=== PATIENT | female | born 1950 | race Caucasian/White ===

== ENCOUNTER 2018-08-14 21:23 | Emergency (ER) | payer OTHER ==
[~2018-08-14] VITALS: Ht 170.2 cm; Wt 59.0 kg
[2018-08-14 21:39] VITALS: BP 121/66
--- NOTE | 2018-08-14 23:07 | Diagnostic Imaging Report ---
WRIST COMPLETE RIGHT HISTORY: Wrist pain status post trauma COMPARISON: None FINDINGS: Bones: No displaced fracture. Mild diffuse demineralization Osseous alignment is within normal limits. Joints: The joint spaces are well-maintained. Soft tissues: The soft tissues appear unremarkable. IMPRESSION: No acute radiographic abnormality. Signed by: Dr. Jonny Rider M.D. on 08/14/2018 11:04 PM
--- NOTE | 2018-08-14 23:08 | Diagnostic Imaging Report ---
RIBS UNILAT W/CXR/LEFT HISTORY: Left-sided rib pain COMPARISON: None FINDINGS: Bones: No displaced fracture. Osseous alignment is within normal limits. Joints: The joint spaces are well-maintained. Soft tissues: The soft tissues appear unremarkable. IMPRESSION: No acute radiographic abnormality. Signed by: Dr. Jonny Rider M.D. on 08/14/2018 11:05 PM
--- OUTSIDE RECORDS SUMMARY | 2018-08-25 11:13 | XMS REPORT | Summary of Care ---
Author Author Vicki Smith Unknown Address [facility] Phone Unavailable Care Team Providers Care Teletype Telegrapher Name Role Phone KATHIE Dudley, ANNETTE Unavailable Unavailable LISSY DESIR [place], VINICIO IYER Unavailable Unavailable VINICIO YUAN M.D. Unavailable Unavailable Unavailable Functional Status Name Dates Details Functional status health issues are not documented Status: Name Dates Details Cognitive status health issues are not documented Status: Problems Name Dates Details Jaw pain (784.92, R68.84) Status: Active Need for hepatitis C screening test (V73.89, Z11.59) Status: Active High risk for colon cancer (V49.89, Z91.89) Status: Active Hordeolum externum of right lower eyelid (373.11, H00.012) Status: Active Allergic rhinitis due to pollen, unspecified rhinitis seasonality Status: Active Sore throat (462, J02.9) Status: Active Fever and chills (780.60, R50.9) Status: Active Right hip pain (719.45, M25.551) Status: Active Fall at home (E888.9, W19.XXXA) Status: Active Post-menopausal (V49.81, Z78.0) Status: Active Osteoporosis screening (V82.81, Z13.820) Status: Active Hyperglycemia (790.29, R73.9) Status: Active Risk for falls (V15.88, Z91.81) Status: Active Need for influenza vaccination (V04.81, Z23) Status: Active Vaginitis due to Nu (112.1, B37.3) Status: Active Dyslipidemia (272.4, E78.5) Status: Active Mammogram declined (V64.2, Z53.20) Status: Active Body mass index (BMI) 21 to less than 23 (V85.1) Status: Active Localized osteoporosis without current pathological fracture (733.09, M81.6) Status: Active Vitamin D deficiency (268.9, E55.9) Status: Active Vision problem (V41.0, H54.7) Status: Active Need for pneumococcal vaccination (V03.82, Z23) Status: Active Depression screen (V79.0, Z13.89) Status: Active Advance directive discussed with patient (V65.49, Z71.89) Status: Active Encounter for mini-mental status examination Status: Active Back pain, lumbosacral (724.2, M54.5) Status: Active Chronic right shoulder pain (719.41, M25.511) Status: Active Screen for colon cancer (V76.51, Z12.11) Status: Active Cellulitis of other specified site (682.8, L03.818) Status: Active Skin lesion (709.9, L98.9) Status: Active Callus of foot (700, L84) Status: Active Glaucoma screening (V80.1, Z13.5) Status: Active Medications Name Dates Details No Reported Medications Active Allergies and Adverse Reactions Name Dates Details No Known Allergies (Allergy) Status: Active Past Medical History Name Dates Details History of H/O breast implant (V43.82, Z98.82) Status: Resolved History of hyperthyroidism (V12.29, Z86.39) Status: Resolved 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, 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 Procedures Procedure Dates Details History of Breast Surgery Enlargement Procedure Completed History of Cholecystectomy Completed Immunization Name Dates Details Fluzone Quadrivalent Intramuscular Suspension on: 09-Aug-2015 Prevnar 13 Intramuscular Suspension Lot #: [id number] on: 01-Mar-2016 Fluzone Quadrivalent 0.5 ML Intramuscular Suspension Prefilled Syringe Lot #: [id number] on: 01-Aug-2016 DTaP Lot #: [id number] on: 16-Aug-2017 Fluzone Quadrivalent 0.5 ML Intramuscular Suspension Lot #: [id number] on: 16-Aug-2017 Pneumococcal polysaccharide vaccine, 23 valent Lot #: [id number] on: 05-Jan-2018 Family History Name Dates Details Family history of cerebrovascular accident (CVA) (V17.1, Z82.3) Status: Active Family history of colon cancer (V16.0, Z80.0) Status: Active Name Dates Details Family history of asthma (V17.5, Z82.5) Status: Active Social History Name Dates Details - Status: Name Dates Details Smoker. current status unknown Vital Signs Date Test Result Details [id number] BP Systolic 104 mm[Hg] Status: Comments: Location: LUE; Position: Sitting BP Diastolic 54 mm[Hg] Status: Comments: Location: LUE; Position: Sitting Height 67 in Status: Weight 132.6 lb Status: Body Mass Index Calculated 20.77 kg/m2 Status: Body Surface Area Calculated 1.7 m2 Status: Heart Rate 93 /min Status: Physical Findings 0 Status: Comments: Alcohol Screen - How many times in the past yr have you had 5 (for M) or 4 (for F) or 4 (for all > 65yrs) or more drinks in a day? Temperature 98.3 f Status: Comments: Method: Temporal Respiration Rate 16 /min Status: Results Date Description Value Details Results not documented Plan of Care Name Dates Details Planned Observations Planned Goals not documented Planned Encounters Appointment; ANNETTE VÁZQUEZ M.D. On: 04-Jan-2019 13:15 Interventions Provided Follow-ups/Referrals* Dermatology Referral; To Be Done: 06 Jul 2018 * Ophthalmology Referral; To Be Done: 06 Jul 2018 Plan* Refer to derm for further eval * use of OTC callus treatment discussed * If no benefit, consider podiatry eval * comfort shoes with support advised * refer to derm for cont care * smoking cessation advised * Return to clinic in 6 months, sooner if needed * Please seek early care if not getting better or getting worse or new change in condition * Please call us back if you don't hear from the office about your labs, imaging or referral in a week. Instructions Name Dates Details Instructions not documented Encounters Appointment; ANNETTE VÁZQUEZ M.D. Encounter Diagnosis: Problem not documented On: 01-Aug-2016 13:30 Appointment; SUMANTH DOMINGUEZ P.A. Encounter Diagnosis: Problem not documented On: 22-Apr-2017 13:15 Appointment; ANNETTE VÁZQUEZ M.D. Encounter Diagnosis: Problem not documented On: 23-Apr-2017 13:30 Appointment; ANNETTE VÁZQUEZ M.D. Encounter Diagnosis: Problem not documented On: 29-Apr-2017 11:30 Appointment; ANNETTE VÁZQUEZ M.D. Encounter Diagnosis: Problem not documented On: 06-May-2017 11:30 Appointment; HARDEEP GERBER NP Encounter Diagnosis: Problem not documented On: 25-Jun-2017 14:30 Appointment; ANNETTE VÁZQUEZ M.D. Encounter Diagnosis: Problem not documented On: 02-Jul-2017 13:30 Appointment; VINICIO YUAN M.D. Encounter Diagnosis: Problem not documented On: 16-Aug-2017 10:45 Appointment; ANNETTE VÁZQUEZ M.D. Encounter Diagnosis: Problem not documented On: 05-Jan-2018 13:30 Appointment; ANNETTE VÁZQUEZ M.D. Encounter Diagnosis: Problem not documented On: 06-Jan-2018 10:30 Appointment; ANNETTE VÁZQUEZ M.D. Encounter Diagnosis: Problem not documented On: 06-Jul-2018 13:15
== END 2018-08-14 23:38 | disposition home or self-care (01) ==
LOC: ER 21:23
DX: S61.501A Unspecified open wound of right wrist, initial encounter (principal); R07.89 Other chest pain; S29.011A Strain of muscle and tendon of front wall of thorax, initial encounter; W22.09XA Striking against other stationary object, initial encounter; Y92.008 Other place in unspecified non-institutional (private) residence as the place of occurrence of the external cause
CPT/HCPCS: 71101; 99283